=== PATIENT | male | born 1935 ===

== ENCOUNTER 2022-12-23 14:24 | Inpatient (IN) | payer MEDICARE ==
[~2022-12-23] VITALS: Ht 172.7 cm; Wt 51.0 kg
--- NOTE | 2022-12-23 18:28 | NUR ---
SHIFT SUMMARY DIRECT ADMIT FROM ADDY FOR NSTEMI. VERY DISHELVED WITH DRIED FECES AND DIRT ON PJ BOTTOMS, GROIN AND LEGS. PLACED IN GOWN AND BED BATH. ADJITATED AT TIMES AND REACHES IN THE AIR AND WILL NOT FOLLOW INSTRUCTIONS. SPOKE WITH [employer] L[facility] ON ARRIVAL REGARDING HEADACHE IN ROUTE AND EMS STOPPING HEPARIN FOR CONCERNED OF INTRACRANIAL BLEED. STAT CT ORDERED. NOTIFIED CASSANDRA PEREYRA OF CRITICAL TROP, VERBAL ORDER GIVEN TO RESTART HEPARIN WITH NORMAL CT. SPOKE WITH CASSANDRA PEREYRA REGARDING CURRENT INDWELLING CHRONIC GIRALDO. GIRALDO IS DIRTY WITH SEDEMENT IN BAG AND AROUND END OF GIRALDO. DEFLATED BALLON AND ATTEMPTED TO REMOVE. UNABLE TO REMOVE TO DUE LARGE AMOUNT OF RESISTANCE. UNABLE TO ADVANCE OR REINFLATE BALLOON. PT YELLS OUT WHEN ATTEMPTING TO INFLATE BALLOON. US OF BLADDER ORDERED TO LOOK FOR GIRALDO PLACEMENT. MULTIPLE BRUISES IN VARIOUS STAGES OF HEALING, REDDENDED NON BLANCHING COCCYX, FINGERS CONTRACTED BILATERALLY, YELLOW TABACCO STAINED NAILS. DAUGHTER AT BEDSIDE, WILL CONTINUE TO MONITOR UNTIL CHANGE OF SHIFT.
[2022-12-23 19:20] VITALS: BP 108/88
[2022-12-23 19:33] LABS: Anti-Xa UFH, PHA Monitoring 0.41 IU/mL; International Normalized Ratio 1.1; Prothrombin Time Results 11.5 Sec (9.7-11.5)
[2022-12-23 19:34] LABS: Mean Platelet Volume 12.1 fL (9.1-12.4); Platelet Count 142 K/mm3 (150-400)
[2022-12-23 22:58] LABS: Source, Urine Foley catheter
[2022-12-23 23:07] LABS: Bilirubin, Urine Neg (Neg); Blood, Urine 5+ (Neg); Glucose Qualitative, Urine Neg (Neg); Ketones, Urine 2+ (Neg); Leukocyte Esterase, Urine 3+ (Neg); Nitrite, Urine Neg (Neg); Protein, Urine 3+ (Neg); Urobilinogen, Urine 1+ (Normal); pH, Urine 6.5 (5.0-8.0)
[2022-12-23 23:15] LABS: Amorphous Light (0-Heavy); Appearance, Urine Cloudy (Clear); Bacteria Few /hpf; Color, Urine Brown (P-Yellow); Red Blood Cells, Urine TNTC /hpf (0-2); Squamous Epithelial Cells Few /hpf (Few)
[2022-12-24] VITALS (7 sets, daily range): BP systolic 107–133; BP diastolic 58–92
[2022-12-24 00:38] LABS: Adenovirus Not Detected (NOT DETECT); Bordetella pertussis Not Detected (NOT DETECT); Chlamydophila pneumoniae Not Detected (NOT DETECT); Coronavirus 229E Not Detected (NOT DETECT); Coronavirus HKU1 Not Detected (NOT DETECT); Coronavirus NL63 Not Detected (NOT DETECT); Coronavirus OC43 Not Detected (NOT DETECT); Human Metapneumovirus Not Detected (NOT DETECT); Human Rhinovirus/Enterovirus Not Detected (NOT DETECT); Influenza A/2009-H1 Not Detected (NOT DETECT); Influenza A/H1 Not Detected (NOT DETECT); Influenza A/H3 Not Detected (NOT DETECT); Influenza B Not Detected (NOT DETECT); Mycoplasma pneumoniae Not Detected (NOT DETECT); Parainfluenza Virus 1 Not Detected (NOT DETECT); Parainfluenza Virus 2 Not Detected (NOT DETECT); Parainfluenza Virus 3 Not Detected (NOT DETECT); Parainfluenza Virus 4 Not Detected (NOT DETECT); Respiratory Syncytial Virus Not Detected (NOT DETECT); SARS-Cov-2 (COVID-19), BioFire Not Detected (NOT DETECT)
[2022-12-24 02:25] LABS: BASOPHILS ABSOLUTE AUTO 0.03 K/mm3 (0.00-0.23); BASOPHILS PERCENT AUTO 0 % (0-2); EOSINOPHILS ABSOLUTE AUTO 0.02 K/mm3 (0.00-0.68); EOSINOPHILS PERCENT AUTO 0 % (0-6); Hematocrit 34.6 % (37.0-53.0); Hemoglobin 11.8 g/dL (13.5-17.5); IMMATURE GRAN ABSOLUTE AUTO 0.03 K/mm3 (0.00-0.10); IMMATURE GRAN PERCENT AUTO 0 % (0-1); LYMPHOCYTES ABSOLUTE AUTO 1.28 K/mm3 (0.84-5.20); LYMPHOCYTES PERCENT AUTO 13 % (21-46); MONOCYTES ABSOLUTE AUTO 0.89 K/mm3 (0.16-1.47); MONOCYTES PERCENT AUTO 9 % (4-13); Mean Corpuscular HGB Conc 34.1 g/dL (31.5-36.5); Mean Corpuscular Volume 97 fL (80-100); Mean Platelet Volume 11.2 fL (9.1-12.4); NEUTROPHILS ABSOLUTE AUTO 7.56 K/mm3 (1.96-9.15); NEUTROPHILS PERCENT AUTO 77 % (41-73); Platelet Count 128 K/mm3 (150-400); RDW Coefficient Variation 12.5 % (11.7-14.2); RDW Standard Deviation 45.1 fL (35.1-46.3); Red Blood Cell Count 3.58 M/mm3 (4.30-5.90); White Blood Cell Count 9.81 K/mm3 (4.00-11.30)
[2022-12-24 02:37] LABS: Bun/Creatinine Ratio 20.5 (12.0-20.0); Calcium, Blood 7.7 mg/dL (8.5-10.1); Creatinine, Blood 1.12 mg/dL (0.60-1.20); Potassium, Blood 3.6 mmol/L (3.5-5.5)
--- NOTE | 2022-12-24 04:44 | NUR ---
RESTRAINT INITITATION PT HAS HAD A BED ALARM SINCE ARRIVAL TO PCU. HE HAS SET IT OFF ABOUT EVERY 15-30 MINUTES. ABOUT 0430 THIS AM THE PT WAS GETTING ANXIOUS AND AGGITATED AND BEGAN TO PULL AT HIS LINES AND ATTEMPTING TO GET OUT OF BED. HE WAS PULLING AT HIS HEP GTT, FLUIDS, GIRALDO, AND TELE. PT HAS NOT BEEN REDIRECTABLE AND MANY INTERVENTIONS WERE TRIED PRIOR TO NON-VIOLENT BILAT SOFT WRIST RESTRAINTS. SEE RESTRAINT MANAGMENT INITIATION FOR MORE INFORMATION. DR. SANCHEZ WAS CALLED AND AN ORDER WAS OBTAINED. PT IS TOLERATION TOHE RESTRIANTS WELL AND WAS EDUCATED ON BEHAVIORS CAUSING THE NEED FOR RESTRIANTS AND THE BEHAVIORS NEEDED TO GET OUT OF THEM. THE PT'S DAUGHTER RICK WAS CALLED AND UPDATED ON THE NEED FOR RESTRIANTS. SHE WAS RECEPTIVE AND UNDERSTOOD THE SAFTEY CONCERNS. SEE NOTES FOR ANY UPDATES.
--- NOTE | 2022-12-24 05:56 | NUR ---
SHIFT SUMMARY PT HAS BEEN A&OX3-4 THIS SHIFT. SHE HAS PERIODS OF CONFUSION, IS HARD OF HEARING, AND HAS TROUBLE SEEING. HIS PUPILS ARE PINPOINT AND BARLEY REACTIVE (DR. LOZANO). PT HAS HAD NO COMPLAINTS OF ANGINA OR SOB THIS SHIFT. HE DID C/O SOME INFREQUENT RIGHT SHOULDER PAIN. HE HAS BEEN SETTING OFF HIS BED ALARM ABOUT EVERY 15-30 MINUTES AND BEGAN TO PULL AT HIS LINES AND TUBES SO NON VIOLENT RESTRAINTS WERE INITIATED. SEE PREVIOUS NOTE FOR MORE INFORMATION. PT HAS BEEN SR W/ PAC'S AND PV'C ON TELE, AND TROPS PEAKED AT 167. HE HAS A HEP GTT RUNNING AND NS @1 150ML/HR. PT IS ON RA AND SP02 >90%. FAMILY UPDATED ON THE PT THIS AM. BED ALARM ON, BED IN LOW, THREE SIDE RAILS UP, AND CALL LIGHT IS IN REACH. I WILL CONTINUE TO PROVIDE CARE UNTIL SHIFT REPORT IS GIVEN TO THE ONCOMING SHIFT RN. SEE NOTES FOR ANY UPDATES.
--- NOTE | 2022-12-24 07:32 | NUR ---
ASSUMED CARE: PT AWOKE ANXIOUS, PULLING AT RESTRAINTS, ASKING WHERE HE WAS. INTRODUCED SELF TO PT AND ASKED HIM HIS NAME AND BIRTHDAY, WHICH HE WAS ABLE TO STATE. WAS UNSURE OF DATE OR YEAR, THOUGHT IT WAS 1999. DID NOT KNOW PRESIDENT. SPEECH SLURRED BUT EQUAL ACTIVITY TO ALL EXTREMITIES NOTED. RESTRAINTS OFF AT THIS TIME AND REPOSITIONED IN BED. BED ALARM ON AND CALL LIGHT IN REACH.
--- NOTE | 2022-12-24 09:00 | NUR ---
CALL TO PT'S SON TO FIND OUT HISTORY AND PREFERENCES. SON STATES PT LIVES WITH HIM, NORMALLY WHEELCHAIR BOUND [place] [facility] [place] SELF. SON HAS TO PROVIDE SHOWERS AND PREPARE FOOD. STATES PT STOPPED DRINKING AND SMOKING SEVERAL YEARS AGO. STATES PT HAS HAD CHRONIC SLUR FOR SEVERAL YEARS. CHRONIC GIRALDO. STATES PT LOVES [employer] AND [employer] AND [employer]. NEPHEW AT BEDSIDE AT THIS TIME. WILL DISCUSS WITH PLANS FOR DIET
--- NOTE | 2022-12-24 10:25 | NUR ---
ENTERPRISE ARCHITECT MANAGER AT BEDSIDE AT THIS TIME.
--- NOTE | 2022-12-24 11:35 | NUR ---
DR PRADO CAME TO SEE PT AND STATED PT DOES NOT NEED CARDIOLOGY CONSULT AT THIS TIME AND CAN EAT WITH SUPERVISION. PROVIDED APPLE JUICE BY SPOON AND PT DID NOT HAVE ANY SWALLOWING ISSUES. HEPARIN DISCONTINUED PER ORDERS. FAMILY AT BEDSIDE. HYDRAULIC PILE HAMMER OPERATOR AWARE OF ORDER CHANGES. NO FURTHER NEEDS AT THIS TIME.
--- NOTE | 2022-12-24 13:21 | NUR ---
PT TAKEN TO MRI VIA GURNEY BY HEAVY EQUIPMENT PLUMBING SUPERVISOR
--- NOTE | 2022-12-24 13:52 | NUR ---
PT BACK TO ROOM FROM MRI. RECONNECTED TO IV FLUIDS. DAUGHTER AT BEDSIDE.
--- NOTE | 2022-12-24 18:40 | NUR ---
SHIFT SUMMARY: PT'S FAMILY WAS AT BEDSIDE MAJORITY OF THE DAY. PT WAS ALERT AND COOPERATIVE WHILE FAMILY WAS HERE. WHEN DAUGHTER LEFT PT BECAME CONFUSED AND AGITATED. FAMILY LEFT [employer] AND [employer] AT BEDSIDE WHICH WORKED A DIVERSION. PT IS REORIENTABLE AND DISTRACTABLE. COOPERATES BETTER WHEN SOMEONE IS AT BEDSIDE WITH HIM. OUT OF RESTRAINTS SINCE THIS AM. CONDUIT BENDER AWARE OF TACTICS THAT HAVE BEEN HELPING TO DIVERT PT'S ATTENTION FROM CATHETER.
[2022-12-25] VITALS (14 sets, daily range): BP systolic 103–168; BP diastolic 56–97
--- NOTE | 2022-12-25 01:18 | NUR ---
UPDATE PT EXTREMELY RESTLESS AND PULLING AT TELE AND GIRALDO CATHETER. UNABLE TO REDIRECT. EXPRESSED CONCERN OF FALL RISK AND WOULD LIKE TO AVOID PUTTING PT IN RESTRAINTS. NOTIFIED PHYSICIAN, ORDERS PLACED.
[2022-12-25 04:35] LABS: BASOPHILS ABSOLUTE AUTO 0.03 K/mm3 (0.00-0.23); BASOPHILS PERCENT AUTO 0 % (0-2); EOSINOPHILS ABSOLUTE AUTO 0.08 K/mm3 (0.00-0.68); EOSINOPHILS PERCENT AUTO 1 % (0-6); Hematocrit 34.5 % (37.0-53.0); Hemoglobin 11.7 g/dL (13.5-17.5); IMMATURE GRAN ABSOLUTE AUTO 0.03 K/mm3 (0.00-0.10); IMMATURE GRAN PERCENT AUTO 0 % (0-1); LYMPHOCYTES ABSOLUTE AUTO 1.59 K/mm3 (0.84-5.20); LYMPHOCYTES PERCENT AUTO 19 % (21-46); MONOCYTES ABSOLUTE AUTO 0.94 K/mm3 (0.16-1.47); MONOCYTES PERCENT AUTO 11 % (4-13); Mean Corpuscular HGB 33.5 pg (26.0-34.0); Mean Corpuscular HGB Conc 33.9 g/dL (31.5-36.5); Mean Corpuscular Volume 99 fL (80-100); Mean Platelet Volume 11.7 fL (9.1-12.4); NEUTROPHILS ABSOLUTE AUTO 5.66 K/mm3 (1.96-9.15); NEUTROPHILS PERCENT AUTO 68 % (41-73); Platelet Count 123 K/mm3 (150-400); RDW Coefficient Variation 12.9 % (11.7-14.2); RDW Standard Deviation 46.7 fL (35.1-46.3); Red Blood Cell Count 3.49 M/mm3 (4.30-5.90); White Blood Cell Count 8.33 K/mm3 (4.00-11.30)
[2022-12-25 05:00] LABS: Albumin, Blood 2.8 g/dL (3.4-5.0); Albumin/Globulin Ratio 0.8 (0.8-1.8); Bilirubin, Total 0.3 mg/dL (0.1-1.0); Bun/Creatinine Ratio 20.1 (12.0-20.0); Calcium, Blood 7.7 mg/dL (8.5-10.1); Creatinine, Blood 0.99 mg/dL (0.60-1.20); Globulin, Blood 3.3 g/dL (2.2-4.0); Potassium, Blood 3.5 mmol/L (3.5-5.5); Total Protein, Blood 6.1 g/dL (6.4-8.2)
--- NOTE | 2022-12-25 06:38 | NUR ---
SHIFT SUMMARY PT A&Ox2-3, HAS DIFFICULTY COMMUNICATING D/T Hx OF CVA AND MUMBLED SPEECH. PT DOES NOT USE CALL LIGHT. PT EXTREMELY RESTLESS THROUGHOUT THE SHIFT, CONSTANTLY TAKING BLANKETS AND TELE OFF AND PULLING AT GIRALDO CATHETER AT TIMES. GIRALDO CATHETER REMAINED IN PLACE, PATENT, DRAINING TO GRAVITY. NO BM THIS SHIFT. BP STABLE, DENIES CP/PRESSURE. SINUS 70's FOR MAJORITY OF SHIFT, PT WITH 6 BEAT RUN OF V-TACH AT START OF SHIFT AND BRADYED DOWN TO 37 BRIEFLY TOWARDS END OF SHIFT. PT ASMPYTOMATIC FOR BOTH. SpO2> 92% RA, DENIES SOB. NO OTHER EVENTS, WILL REPORT TO ONCOMING RN.
--- NOTE | 2022-12-25 07:18 | NUR ---
ASSUMED CARE: PT RESTING QUIETLY AT THIS TIME. SINUS REUBEN IN THE 50S ON TELE. NO ACUTE NEEDS OR CONCERNS AT PRESENT.
[2022-12-25 10:53] LABS: U Amphetamine Screen Not Detected; U Barbituate Screen Not Detected; U Benzodiazapine Screen Not Detected; U Buprenorphine Screen Not Detected; U Cannabinoids Screen Not Detected; U Cocaine Screen Not Detected; U Methadone Screen Not Detected; U Methamphetamine Screen Not Detected; U Opiates Screen Not Detected; U Oxycodone Screen Not Detected; U Phencyclidine Screen Not Detected; U Propoxyphene Screen Not Detected
--- NOTE | 2022-12-25 12:01 | NUR ---
PT AWOKE FROM NAP AND EXPIRATORY WHEEZE NOTED. REVIEW OF I AND O REVEALED 3L OVER. CALL TO DR PRADO WHO INSTRUCTED STAT CXR AND STOP IV FLUIDS. DR DID NOT WANT DIURETICS UNTIL XRAY REVEALS FLUID OVERLOAD
--- NOTE | 2022-12-25 15:43 | NUR ---
REVIEWED XRAY RESULT WITH DR PRADO. ORDERS FOR ONE TIME DOSE IV LASIX. PT CONTINUES TO OCCASIONALLY WHEEZE AND COUGH
[2022-12-25 17:54] LABS: BASOPHILS ABSOLUTE AUTO 0.07 K/mm3 (0.00-0.23); BASOPHILS PERCENT AUTO 1 % (0-2); EOSINOPHILS PERCENT AUTO 3 % (0-6); Hematocrit 41.5 % (37.0-53.0); Hemoglobin 13.5 g/dL (13.5-17.5); IMMATURE GRAN ABSOLUTE AUTO 0.02 K/mm3 (0.00-0.10); IMMATURE GRAN PERCENT AUTO 0 % (0-1); LYMPHOCYTES ABSOLUTE AUTO 4.33 K/mm3 (0.84-5.20); LYMPHOCYTES PERCENT AUTO 36 % (21-46); MONOCYTES ABSOLUTE AUTO 1.25 K/mm3 (0.16-1.47); MONOCYTES PERCENT AUTO 10 % (4-13); Mean Corpuscular HGB 33.2 pg (26.0-34.0); Mean Corpuscular HGB Conc 32.5 g/dL (31.5-36.5); Mean Corpuscular Volume 102 fL (80-100); Mean Platelet Volume 11.5 fL (9.1-12.4); NEUTROPHILS PERCENT AUTO 50 % (41-73); Platelet Count 146 K/mm3 (150-400); RDW Coefficient Variation 12.8 % (11.7-14.2); RDW Standard Deviation 48.2 fL (35.1-46.3); Red Blood Cell Count 4.07 M/mm3 (4.30-5.90); White Blood Cell Count 12.17 K/mm3 (4.00-11.30)
--- NOTE | 2022-12-25 18:01 | NUR ---
AT 1650 PT WAS GETTING READY TO TRANSFER TO MEDICAL FLOOR AND STARTED HAVING A SEIZURE. TONIC/CLONIC SEIZURE THAT LASTED 1 MINUTE AND [address] PRADO AND INFORMED HIM THAT PT APPEARED TO BE IN AFIB. ORDERED IV KEPPRA AND EKG. DURING POSTICTAL STATE PT WAS CONFUSED AND AGITATED, TRYING TO CLIMB OUT OF BED. STAFF WAS ATTEMPTING TO REORIENT AND RN WAS ON PHONE WITH SON IFTIKHAR TO GIVE HIM AN UPDATE. PT STARTED SEIZING AGAIN WHICH WAS 40 MINUTES FROM FIRST SEIZURE. DURING THIS SEIZURE PT'S SATURATION DROPPED INTO THE 80S AND HR WAS 180S WHILE POST ICTAL. RAPID RESPONSE WAS CALLED. NRB WAS PLACED AT 15L. IV ATIVAN GIVEN AND KEPPRA BOLUS STARTED. HOSPITALISTS AT BEDSIDE ORDERING FOR CT HEAD. REPORT GIVEN TO ICU ROADS SUPERINTENDENT. NURSING SAFE TECHNICIAN CALLED PT'S FAMILY AND CONFIRMED THAT PT WOULD WANT TO BE FULL CODE. PT TRANSFERRED TO CT WITH ICU ROADS SUPERINTENDENT. RT AT BEDSIDE WITH RSI AND INTUBATION KIT ON HAND. BELONGINGS TRANSFERRED TO ICU 7.
[2022-12-25 18:14] LABS: Bun/Creatinine Ratio 15.5 (12.0-20.0); Creatinine, Blood 1.03 mg/dL (0.60-1.20); Magnesium, Blood 1.8 mg/dL (1.6-2.4); Potassium, Blood 3.3 mmol/L (3.5-5.5)
--- NOTE | 2022-12-25 19:03 | NUR ---
Ativan waste: 2mg IV Ativan vial removed from RSI kit while in room PCU 20. Ativan kept at bedside through transport to CT and to ICU. Ativan not given as patient did not have anymore seizure activity. 2mg IV Ativan wasted by this RN with Kylee Youngblood RN as witness.
[2022-12-25 21:57] LABS: Base Excess Venous 0.5 mmol/L; PCO2 Venous 37.3 mmHg (38-42); pH Blood Venous 7.43 (7.34-7.37)
[2022-12-26] VITALS (25 sets, daily range): BP systolic 94–157; BP diastolic 48–102
--- NOTE | 2022-12-26 06:10 | NUR ---
SHIFT SUMMARY ASSUMED CARE OF PATIENT AT 181. AT THAT TIME, PATIENT OBTUNDED; RESPONSIVE ONLY TO PERSISTANT STERNAL RUB. BY 2199, PATIENT ALERT, RESTLESS, YELLING OUT. VERY DIFFICULT TO UNDERSTAND PATIENT; SPEECH IS SLURRED/MUMBLED. PATIENT IS ALERT X2-3; ABLE TO STATE NAME, , CURRENT YEAR, AND OCCASIONALLY KNOWS THAT HE IS IN THE HOSPITAL AFTER REORIENTATION. PERRL. FOLLOW COMMANDS. NO SEIZURE ACTIVITY NOTED OVERNIGHT. MONITOR SHOWING SB/SINUS ARRHYTHMIA, HR 50-70S. NORMOTENSIVE WHEN CALM; HYPERTENSIVE WITH SBP 160S WHEN AGITATED/RESTLESS. RA-2L NC FOR DESATS TO ~85% WHEN SLEEPING. EXCELLENT URINE OUTPUT VIA GIRALDO CATH. POTASSIUM AND MAGNESIUM REPLACED. RESTING COMFORTABLY AT THIS TIME.
[2022-12-26 06:15] LABS: Bun/Creatinine Ratio 12.6 (12.0-20.0); Calcium, Blood 7.8 mg/dL (8.5-10.1); Creatinine, Blood 0.87 mg/dL (0.60-1.20); Magnesium, Blood 2.5 mg/dL (1.6-2.4); Potassium, Blood 4.1 mmol/L (3.5-5.5)
--- NOTE | 2022-12-26 08:37 | NUR ---
AM NOTE... ASSUMED CARE OF PT AT 0700. PT IS SLEEPING BUT WAKES EASILY, PT WAKES UP YELLING OUT AT TIMES WELL. PT'S SPEECH IS VERY GARBBLED/SLURRED. DURING SPEECH PT WAS HAVING A VERY HARD TIME CONTROLLING HIS TONGUE MOVEMENT. PT IS MADE NPO PER NURSING JUDGMENT UNTIL PT HAS A SPEECH EVAL. HE IS ON RA WITH O2 SATS >90% L/S DIM AND CLEAR T/O. HE IS IN SINUS REUBEN WITH PACs/PVCs IN THE 50'S-60'S WHILE AWAKE AND 40'S-50'S WHILE ASLEEP. BP STABLE WITH MAPS >65. NO EDEMA NOTED ON THIS ASSESSMENT. THE PT HAS A CHRONIC GIRALDO WHICH IS DRAINING TO GRAVITY. WILL CONTINUE TO MONITOR.
--- NOTE | 2022-12-26 18:09 | NUR ---
SHIFT SUMMARY.... NO ACUTE NEGATIVE CHANGES NOTED THIS SHIFT, NO SEIZURE LIKE ACTIVITY NOTED THIS SHIFT. PT'S VS HAVE BEEN STABLE, HIS HR DOES DROP DOWN TO THE 40'S DURING HEAVY SLEEP BUT QUICKLY POPS BACK UP TO THE 50'S-60'S. THE PT WAS VERY AWAKE AND CLEAR THIS EVENING AROUND DINNER TIME, HE WAS ABLE TO SIT UP AND HELP FEED HIMSELF DINNER WITH STAFF ASSIST. PT'S DAUGHTER WAS AT THE BEDSIDE THIS AFTERNOON, SHE WAS UPDATED AND SPOKE WITH PALLIATIVE CARE RN HEIDI. THE PT'S GIRALDO IS PATENT AND DRAINING CLEAR YELLOW URINE TO GRAVITY. THE PT DID NOT HAVE A BM THIS SHIFT. THE PT'S SCROTUM AND GROIN AREA WERE RED WITH MOISTURE EXCORIATIONS. THIS AREA WAS CLEANED AND DRIED WELL, MEPILEX WAS APPLIED TO THE PT'S COCCYX AND HEELS BILATERALLY. PLAN IS FOR PT/OT TO WORK WITH THE PT TOMORROW. CALL LIGHT IN REACH, BED ALARM IS ON WILL CONTINUE TO MONITOR UNTIL REPORT IS GIVEN TO ONCOMING RN.
[2022-12-27] VITALS (15 sets, daily range): BP systolic 112–164; BP diastolic 57–105
--- NOTE | 2022-12-27 06:30 | NUR ---
SHIFT SUMMARY OVERNIGHT, PATIENT ALERT AND ORIENTED X2 FOR MAJORITY OF NIGHT. WAKES UP CONFUSED, AGITATED, BUT REDIRECTABLE. NO SEIZURE ACTIVITY NOTED; CONTINUES ON BID KEPPRA. MONITOR SHOWING SINUS ARRHYTHMIA C PVCS, HR 40-70S. BP STABLE. ROOM AIR. ADEQUATE URINE OUTPUT VIA GIRALDO. SPOKE TO SON EXTENSIVELY AT BEDSIDE AND GIVEN UPDATE ON CONDITION. NO FURTHER CONCERNS.
--- NOTE | 2022-12-27 11:49 | NUR ---
SHIFT ASSESSMENT ASSUMED CARE OF PT @ 0700. PT ALERT TO PERSON, YEAR, AND TOWN. REMEMBERS FALLING BUT UNSURE OF WHY HE IS HERE. VERY DIFFICULT TO UNDERSTAND DUE TO SLURRED SPEACH. CONFIRMED WITH PTS DAUGHTER RICK THAT HIS SPEACH IS SLURRED AT BASELINE BUT NOT THIS BAD. PT FRIENDLY, JOKING WITH STAFF. TOLERATING PO INTAKE WELL. PHYSICAL THERAPY WORKED WITH PT THIS AM, UP TO BEDSIDE CHAIR WITH GAIT BELT AND 1-PERSON ASSIST. 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 LARGE, LOOSE BM MID MORNING, FULL BEDBATH GIVEN. PT NOW MEDICAL STATUS, AWAITING ROOM. PTS SON IFTIKHAR UPDATED.
--- NOTE | 2022-12-27 18:01 | NUR ---
REPORT GIVEN TO ROOM 353 NURSE. PT TAKEN TO ROOM VIA ICU BED.
--- NOTE | 2022-12-27 18:07 | NUR ---
TX NOTE PT TRANSFERRED TO ROOM 353. REPORT RECEIVED FROM SRAVANI RN/RANDEE STUDENT RN. PT ARRIVED VIA GURNEY AWAKE AND ALERT. PT TRANSFERRED TO BED VIA SLIDE FROM [facility]. PT HAS SLURRED SPPECH BUT ANSWERS QUESTIONS APPROPRIATELY. PT ORIENTED TO ROOM AND CALL LIGHT, DENIES ANY NEEDS CURRENTLY. BED ALARM ON AND IN LOW POSITIION.
[2022-12-28 03:25] VITALS: BP 114/66
--- NOTE | 2022-12-28 06:03 | NUR ---
A/0X2-3; SELF AND PLACE AT SHIFT START. CALM AND COOPERATIVE. SLURRED SPEECH. GIRALDO CATH CARE AND INC CARE AT SHIFT START FOR LARGE, LIQUID BM. CREAM APPLIED TO EXCORIATED PENIS/ SCROTUM/ GROIN FOLDS. APPROX Q2 HR REPOSITIONING. GOOD PO INTAKE THIS SHIFT; ASSISTED WITH MULTIPLE ENSURE DRINKS; REQUIRED FREQUENT CUEING DURING INTAKE. SLEEP PROMOTED. CALL LIGHT IN REACH; ENCOURAGED TO MAKE NEEDS KNOWN. BED ALARM SET.
[2022-12-28 07:51] VITALS: BP 107/58
[2022-12-28] MEDS ORDERED: LEVE500 PO (13:24)
--- NOTE | 2022-12-28 14:59 | NUR ---
PT'S CODE STATUS CHANGED TO REFLECT UPDATED POLST.
[2022-12-28 15:02] VITALS: BP 129/64
[2022-12-28 19:23] VITALS: BP 135/68
--- NOTE | 2022-12-28 20:12 | NUR ---
SHIFT SUMMARY: PT A/O X 3, PIVOT TX TO CHAIR. PLEASANT AND COOPERATIVE WITH CARE. PT EATING WELL AND DRINKING FLUIDS WELL. PT HAD NO REPORTS OF PAIN. GIRALDO CATHETER DRAINING AND PATENT WITH CLEAR YELLOW URINE. PT SON UNABLE TO BE REACHED AND UNSURE IF HE IS COMING TO TRAFFIC AGENT PT. NOC RN AWARE OF SITUATION.
--- NOTE | 2022-12-29 00:27 | NUR ---
SPOKE WITH DAUGHTER, SHE STATES THE SON HAD BEEN WAITING FOR A CALL ALL DAY TO GET AN UPDATE. DAUGHTER WAS INFORMED OF DC ORDERS AND STATES THE SON WILL BE COMMING TOMORROW ATER WORK AROUND 1900, TO PICK HIM UP. HE WOULD LIKE A CALL IN ADVANCE TO GO OVER HOME HEALTH. CONTACT NUMBERS CONFIRMED.
[2022-12-29 02:44] VITALS: BP 126/86
--- NOTE | 2022-12-29 05:22 | NUR ---
PATIENT IS ALERT ANDORIENTED X3, COOPERATIVE WITH CARE, VOICE MUFFLED. PIV'S SL, TELE NS, LUNGS CLEAR BUT DIM, FC DRAINING TO GRAVITY WIITH GOOD UO, LOOSE BM, INC OF STOOL. NO OTHER ISSUES TO REPORT.
[2022-12-29 07:12] VITALS: BP 122/70
[2022-12-29 15:24] VITALS: BP 125/72
--- NOTE | 2022-12-29 17:53 | NUR ---
SHIFT SUMMARY: PT A&O X3. PT HAS BEEN PLEASANT AND COOPERATIVE THROUGHOUT SHIFT. PT HAS BEEN VERY LETHARGIC THIS SHIFT. PT DID NOT WANT TO WORK WITH THERAPY DUE TO BEING IN PAIN. REPOSITIONED PT AND STATED PAIN HAD GOTTEN BETTER. GIRALDO IN PLACE DRAINING TO GRAVITY. IV'S PATENT AND FLUSHING W/O COMPLICATIONS. PT TO BE D/C AROUND [phone] THIS EVENING PICKED UP BY SON. CALL LIGHT IN REACH. BED IN LOWEST POSITION. WILL CONTINUE TO MONITOR.
== END 2022-12-29 19:50 | disposition home health service (06) | DRG 91 ==
LOC: PCU 14:24 → ICUE 16:40 → PCU 16:40 → ICUE 12-25 17:54 → MEDS 12-27 17:58 → ENPENDDIS 12-28 16:57 → MEDS 12-29 19:50
PROVIDERS: Internal Medicine; Nurse Practitioner Acute Care; ADMIT Internal Medicine
DX: G92.8 Other toxic encephalopathy (principal); I21.A1 Myocardial infarction type 2; S06.0XAA Concussion with loss of consciousness status unknown, initial encounter; S12.9XXA Fracture of neck, unspecified, initial encounter; F05 Delirium due to known physiological condition; H91.90 Unspecified hearing loss, unspecified ear; F03.B0 Unspecified dementia, moderate, without behavioral disturbance, psychotic disturbance, mood disturbance, and anxiety; S00.83XA Contusion of other part of head, initial encounter; I10 Essential (primary) hypertension; F10.21 Alcohol dependence, in remission; G40.909 Epilepsy, unspecified, not intractable, without status epilepticus; I95.9 Hypotension, unspecified; R29.810 Facial weakness; T43.595A Adverse effect of other antipsychotics and neuroleptics, initial encounter; R47.81 Slurred speech; Z20.822 Contact with and (suspected) exposure to COVID-19; B95.2 Enterococcus as the cause of diseases classified elsewhere; W19.XXXA Unspecified fall, initial encounter; Z99.3 Dependence on wheelchair; Z87.891 Personal history of nicotine dependence; Z74.01 Bed confinement status; Z86.73 Personal history of transient ischemic attack (TIA), and cerebral infarction without residual deficits; Z85.51 Personal history of malignant neoplasm of bladder; Z87.440 Personal history of urinary (tract) infections
CPT/HCPCS: 0202U; 36415; 51702; 70450; 70551; 71045; 76857; 80048; 80053; 81001; 82140; 82550; 82607; 82746; 82803; 83735; 84484; 85025; 85049; 85520; 85610; 85730; 87077; 87086; 87186; 92526; 92610; 93005; 93010; 93306; 97162; 97166; 97530; 97535; A9270; J0696; J1644; J1940; J1953; J2060; J3475; J3480; J7030; J7050